=== PATIENT | female | born 1970 | race African-American/Black ===

== ENCOUNTER 2022-07-05 19:42 | Emergency (ER) | payer MEDICAID, SELFPAY ==
--- NOTE | ~2022-07-05 | XR_ITS ---
EXAM: XR shoulder LT min 2V DATE: 07/05/2022 20:19 HISTORY: FALL . COMPARISON: None available. FINDINGS: Normal mineralization. No fracture or dislocation. No lytic or blastic lesion. Mild AC bay nt osteoarthritis. No erosion or periosteal change. Soft tissues within normal limits. IMPRESSION: No acute osseous finding in the left shoulder. Reviewed, dictated and finalized at location K.
--- NOTE | ~2022-07-05 | CT_ITS ---
EXAMINATION: CT cervical spine wo con DATE: 07/05/2022 21:39 INDICATION: midline tenderness c6 after fall TECHNIQUE: Computed tomography (CT) of the cervical spine was performed without intravenous contrast. Automated exposure control and iterative reconstruction technique were employed. The dose-length pro duct was 415.84 mGy-cm. COMPARISON: None. FINDINGS: Vertebral Body Alignment: Intact. . Craniocervical and atlantoaxial alignment: Moderate degenerative change. Alignment intact. Osseous structures/fracture: No evidence of a lytic or blastic process in the visualized spine. No e vidence of acute fracture. . Cervical soft tissues: The paraspinal soft tissues planes are maintained. Degenerative changes: Degenerative changes, without severe neural foraminal or central canal narrowin g. IMPRESSION: No acute fracture or traumatic malalignment in the cervical spine. Reviewed, dictated and finalized at location K.
--- NOTE | ~2022-07-05 | XR_ITS ---
EXAM: XR ankle LT 2V DATE: 07/05/2022 20:19 HISTORY: FALL. SWELLING TO LATERAL AND MEDIAL ANKLE . COMPARISON: None available. FINDINGS: Normal mineralization. Oblique, nondisplaced fracture of the distal left fibula, at the le melani of the joint line (Stephenson B). No lytic or blastic lesion. Exuberant osteophytosis at the midfoot. Plantar and Achilles enthesopathy. No erosion or periosteal change. Soft tissue swelling about the an kle, most prominent laterally. IMPRESSION: Nondisplaced oblique distal left fibular fracture. Reviewed, dictated and finalized at location K.
[2022-07-05 19:44] VITALS: BP 140/85; PULSE 94; RESP 18; TEMP 36.6; O2SAT 99
--- NOTE | 2022-07-05 21:30 | ED.FALL ---
HPI - Fall General Chief Complaint: Fall <PREMA Contreras Last Filed: 07/06/22 00:50> Stated Complaint: ankle pain <PREMA Contreras Last Filed: 07/06/22 00:50> Time Seen by Provider: 07/05/22 21:14 <PREMA Contreras Last Filed: 07/06/22 00:50> History of Present Illness HPI Narrative: 51-year-old female here for evaluation of right ankle pain after a fall last week. Patient states that she lost her footing when she was going down the stairs and landed with the foot in eversion. She did hit her head but did not lose consciousness. Since the fall she has been experiencing neck pain, right ankle pain and left shoulder pain. She states that she has not been able to bear weight on the ankle because of pain. She has not attempted any medicine for pain yet. No paresthesias in the arms or legs, weakness in the legs, chest pain or shortness of breath, fevers or chills, nausea or vomiting, visual changes. <PREMA Contreras Last Filed: 07/06/22 00:50> Related Data Allergies/Adverse Reactions: Allergies Allergy/AdvReac Type Severity Reaction Status Date / Time nitrofurantoin Allergy Intermediate Rash Verified 07/05/22 21:43 [From Macrobid] <PREMA Contreras Last Filed: 07/06/22 00:50> Review of Systems Review of Systems: Gen: Denies fevers or chills Eyes: Denies eye pain or visual change ENT: Denies congestion Respiratory: Denies shortness of breath or cough CV: Denies chest pain or palpitations GI: Denies abdominal pain nausea, emesis or diarrhea : denies burning, urgency, frequency or hematuria Musculoskeletal: reports right ankle pain, neck pain and left shoulder pain Neuro: Denies numbness, tingling, weakness or focal weakness Skin: Denies rash Except as documented, all other systems reviewed and negative <PREMA Contreras Last Filed: 07/06/22 00:50> Exam Narrative: APPEARANCE: Well appearing, no pain in distress, well-nourished. Head: Normocephalic and atraumatic. EYES: PERRLA/EOMI, conjunctivae clear NOSE: No nasal drainage EARS: External ear normal in appearance THROAT: Oropharynx is clear. Mucous membranes are moist. NECK: midline tenderness to c7. RESPIRATORY: Airway patent, respirations nonlabored. Clear to auscultation bilaterally, no rales, rhonchi, wheezing. CARDIOVASCULAR: strong dp/pt pulses bilaterally. Regular rate and rhythm without murmurs, rubs, or gallops. ABDOMINAL: Normoactive bowel sounds. Soft, nontender, nondistended. No rebound tenderness or guarding. MUSCULOSKELETAL: there is soft tissue swelling to the medial and lateral malleoli with bony tenderness to the lateral malleoli. No tenderness to palpation over the bones of the feet. No tenderness to palpation along the proximal tibia. NEURO: Normal speech. No focal neurologic deficits. SKIN: Skin is warm and dry. No rashes. PSYCHIATRIC: Normal affect/mood.. <Vida Nicole PA-C - Last Filed: 07/06/22 00:50> Course EXTRUSION SUPERVISOR/PA Physician Supervision This is a was performed by both a physician and an APC. I performed all aspects of the MDM as documented w/ the following additions: 51-year-old female presenting ED after a fall. She is found have a fibula fracture. She is placed in a splint. Borjas components all procedures performed under my supervision. Patient discharged with orthopedic follow-up.All questions answered. Patient in agreement w/ disposition. <Duarte Mejia MD - Last Filed: 07/06/22 21:13> Vital Signs Vital signs: Vital Signs Temperature 97.8 F 07/05/22 19:44 Pulse Rate 94 07/05/22 19:44 Respiratory Rate 18 07/05/22 19:44 Blood Pressure 140/85 07/05/22 19:44 Pulse Oximetry 99 07/05/22 19:44 Oxygen Delivery Room Air 07/05/22 19:44 Temperature 97.8 F 07/05/22 19:44 Pulse Rate 94 07/05/22 19:44 Respiratory Rate 18 07/05/22 19:44 Blood Pressure 140/85 07/05/22 19:44 Pulse
[2022-07-05] MEDS: HYDROcodone/acetaminophen (*CRX) 5-325 MG TABLET 1 TAB PO (21:43)
== END 2022-07-05 23:17 | disposition home or self-care (01) ==
PROVIDERS: Emergency Provider Physician Assistant
DX: S82.832A Other fracture of upper and lower end of left fibula, initial encounter for closed fracture (principal); S49.92XA Unspecified injury of left shoulder and upper arm, initial encounter; S19.9XXA Unspecified injury of neck, initial encounter; W10.9XXA Fall (on) (from) unspecified stairs and steps, initial encounter
CPT/HCPCS: 29515; 72125; 73030; 73600; 99284; A9270